=== PATIENT | male | born 1990 | race Caucasian/White ===

== ENCOUNTER → 2021-03-06 | Outpatient (CLI) | payer OTHER ==
[~2021-03-06] MED LIST: IOHEXOL 300 MG/ML 75 ML VIAL. IV ONE
--- NOTE | 2021-03-06 09:11 | RAD ---
EXAM: CT HEAD WITH AND WITHOUT CONTRAST. HISTORY: Headache, right eye vision loss, prior brain tumor removal. TECHNIQUE: Computed tomography of the head was performed before and after the intravenous administrat ion of iodinated contrast. One or more of the following individualized dose reduction techniques were utilized for this examination: 1. Automated exposure control. 2. Adjustment of the mA and/or kV according to patient size. 3. Use of iterative reconstruction technique. COMPARISON: None. FINDINGS: There are changes of right frontal craniotomy. A small encephalomalacic cavity along the ri ght para midline frontal lobe measures 2.6 x 1.7 cm. No recurrent mass is identified. There are no en hancing parenchymal lesions. Limited images of the vasculature reveal no abnormality. There is no intracranial hemorrhage. Pierre-white differentiation is preserved elsewhere. The ventricle s are normal in size and position. The visualized paranasal sinuses appear clear. The orbits are unremarkable. The temporal bones are un remarkable. The calvarium reveals no suspicious lesions. IMPRESSION: 1. 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 No evidence of recurrenc e by CT. MRI is more sensitive if there is persistent concern. 2. No acute intracranial findings. Electronically signed by: Cameron Thacker MD (03/06/2021 9:08 AM) [id number]
== END ==
LOC: CT 07:44 → EDBD 08:00
PROVIDERS: ATTEND Preventive Medicine Occupational Medicine
DX: G93.89 Other specified disorders of brain (principal); R51.9 Headache, unspecified; Z85.841 Personal history of malignant neoplasm of brain
CPT/HCPCS: 70470; Q9967